=== PATIENT | female | born 1995 | race Caucasian/White ===

== ENCOUNTER → 2018-04-25 19:49 | Emergency (ER) | payer OTHER, MEDICAID ==
[2018-04-25] MEDS: HYDROCODONE/APAP (5/325) TAB PO (18:32)
[2018-04-25] MEDS: DIPHTH/TET/ACEL PERTUSS (ADULT) 0.5 ML VIAL IM* (18:34)
[2018-04-25] MEDS: LIDOCAINE 1% (MDV) 10 ML INJ INFIL (18:36)
== END | disposition home or self-care (01) ==
DX: S61.211A Laceration without foreign body of left index finger without damage to nail, initial encounter (principal); W26.8XXA Contact with other sharp object(s), not elsewhere classified, initial encounter; Y92.89 Other specified places as the place of occurrence of the external cause; Z23 Encounter for immunization
CPT/HCPCS: 12001; 81025; 90471; 90715; 99283-25

== ENCOUNTER 2018-04-26 12:03 | Emergency (ER) | payer OTHER | END 2018-04-26 13:30 | disposition home or self-care (01) | LOC: FTE 12:03 | DX: Z48.01 Encounter for change or removal of surgical wound dressing (principal) | CPT/HCPCS: 99281; Z7502 ==